=== PATIENT | female | born 2005 | race Caucasian/White ===

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

== ENCOUNTER → 2024-01-08 07:17 | Outpatient (REF) | payer BC, SELFPAY | LOC: HWRAD 07:17 | PROVIDERS: ATTENDING PHYSICIAN Nurse Practitioner | DX: R10.9 Unspecified abdominal pain (principal) | CPT/HCPCS: 76700 ==

== ENCOUNTER 2024-04-10 01:05 | Emergency (ER) | payer BC, SELFPAY ==
[2024-04-10 01:06] VITALS: BP 160/100
--- NOTE | 2024-04-10 01:11 | ED.GENMED ---
History of Present Illness
<HEATHER Driscoll - Last Filed: 04/10/24 03:25>
General
Chief Complaint: Chest Pain
Source: patient
Time Seen by Provider: 04/10/24 01:11
Nursing documentation reviewed up to this point in time: agreed with
History of Present Illness
History of Present Illness:
Pt is a 19 yo F who presents with a history of anxiety and depression to the emergency department with worsening chest pain for the past few hours. Pt states that she noticed the chest pain and felt 'off' while in class today and explains that her
chest pain continued to worsen so she decided to seek care. Pt states the chest pain is located in the middle of her chest and that it is non-radiating. She describes the pain as sharp and rates it a 7/10. Pt states that nothing makes the chest pain
better or worse. Pt states that she has been experiencing dizziness, tachycardia, and fainting when going from a sitting to standing position for the past 3 weeks. Pt states that she saw her PCP for these symptoms a couple weeks ago and that her
doctor was planning to begin the pt on a Holter monitor, and that she has not received the monitor at this time. Pt denies these symptoms occurring at this time. Pt denies shortness of breath, cough, hemoptysis, fever, syncope, lower extremity pain
or edema, chills, nausea, vomiting, palpitations, recent illness.
Past History
<HEATHER Driscoll - Last Filed: 04/10/24 03:25>
Past History
ED Past Medical History: Psychiatric and Other (Chronic neck pain)
Social History
Tobacco: Non-smoker
Alcohol: None
Drug: None
Personal: Single
Living: with family
Employment: Employed
Review of Systems
<HEATHER Driscoll - Last Filed: 04/10/24 03:25>
Review of Systems
Allergies reviewed?: Yes
Constitutional: Reports no symptoms
EENT: Reports no symptoms
Respiratory: Reports no symptoms
Cardiac: Reports chest pain
ABD/GI: Reports no symptoms
: Reports no symptoms
Skin: Reports no symptoms
Neurological: Reports no symptoms
Phy Exam
<Radha Jackman [facility] - Last Filed: 04/10/24 03:25>
General Physical Exam
General Presentation: well appearing and no apparent distress
General Skin: warm
General Habitus: normal
General Mental: alert
General Hydration: appears well hydrated
Cardiovascular Exam
Cardiovascular Exam: regular rate/rhythm
Pulmonary Exam
Pulmonary Exam: lungs clear
Scores
<Radha Jackman, [facility] - Last Filed: 04/10/24 03:25>
Heart Score for Chest Pain Patients
STEMI patient?: No
History: Slightly or Non-Suspicious
ECG: Normal
Age: </= 45 years
Risk Factors: No Risk Factors
Troponin: </= Normal Limit
Heart Score for Chest Pain Patients: 0
Heart Score Risk: 2.5% MACE over next 6 weeks
Course
<Radha Jackman, [facility] - Last Filed: 04/10/24 03:25>
Orders/Labs/Results
Orders:
Orders
04/10/24 01:10
ECG [Electrocardiogram (*1)] Urgent
Reason for Study: Chest Pain
EKG- Treatment ONCE
04/10/24 01:23
Test Result ONCE
04/10/24 01:25
Complete Blood Count/With Diff Urgent
Comprehensive Metabolic Panel Urgent
HCG, Serum Qualitative Screen Urgent
Troponin I Urgent
04/10/24 02:25
CXR2 [CR Chest - 2 Views ] Urgent
Comment:
Reason For Exam: chest pain
Abnormal Lab Results
04/10/24
01:25
WBC 11.4 H 10^3/uL
(4.8-10.8)
MPV 10.7 H fL
(7.4-10.4)
Absolute Neuts (auto) 7.0 H 10^3/uL
(1.4-6.5)
Absolute Monos (auto) 0.8 H 10^3/uL
(0.1-0.6)
04/10/24 01:25
04/10/24 01:25
Vital Signs
Initial and Last Documented VS:
Initial Vital Signs
Temp Pulse Resp BP Pulse Ox
97.8 F 70 20 160/100 100
04/10/24 01:06 04/10/24 01:06 04/10/24 01:06 04/10/24 01:06 04/10/24 01:06
Last Documented Vital Signs
Temp Pulse Resp BP Pulse Ox
97.8 F 75 18 105/64 97
04/10/24 01:06 04/10/24 02:00 04/10/24 02:00 04/10/24 02:00 04/10/24 02:00
<Arron Kincaid, DO - Last Filed: 04/10/24 03:32>
Orders/Labs/Results
Orders:
Orders
04/10/24 01:10
ECG [Electrocardiogram (*1)] Urgent
Reason for Study: Chest Pain
EKG- Treatment ONCE
04/10/24 01:23
Test Result ONCE
04/10/24 01:25
Complete Blood Count/With Diff Urgent
Comprehensive Metabolic Panel Urgent
HCG, Serum Qualitative Screen Urgent
Troponin I Urgent
04/10/24 02:25
CXR2 [CR Chest - 2 Views ] Urgent
Comment:
Reason For Exam: chest pain
Abnormal Lab Results
04/10/24
01:25
WBC 11.4 H 10^3/uL
(4.8-10.8)
MPV 10.7 H fL
(7.4-10.4)
Absolute Neuts (auto) 7.0 H 10^3/uL
(1.4-6.5)
Absolute Monos (auto) 0.8 H 10^3/uL
(0.1-0.6)
04/10/24 01:25
04/10/24 01:25
Vital Signs
Initial and Last Documented VS:
Initial Vital Signs
Temp Pulse Resp BP Pulse Ox
97.8 F 70 20 160/100 100
04/10/24 01:06 04/10/24 01:06 04/10/24 01:06 04/10/24 01:06 04/10/24 01:06
Last Documented Vital Signs
Temp Pulse Resp BP Pulse Ox
97.8 F 75 18 105/64 97
04/10/24 01:06 04/10/24 02:00 04/10/24 02:00 04/10/24 02:00 04/10/24 02:00
<HEATHER Driscoll - Last Filed: 04/10/24 03:25>
MDM/Problems Addressed
Differential Diagnosis Includes:
Pulmonary embolism, ME, anxiety, GERD
<HEATHER Driscoll - Last Filed: 04/10/24 03:25>
*Critical Care Note
Total Time (30-74mins, 75-104mins- exclusive of procedures): Not Applicable
<Arron Kincaid DO - Last Filed: 04/10/24 03:32>
Update Note
Update Note:
Patient was able to ambulate around the room with no distress.
ED Attending Note
<HEATHER Driscoll - Last Filed: 04/10/24 03:25>
-
Portions of this chart may have been created with voice recognition software.� Occasional wrong word or��sound alike� substitutions may have occurred due to the inherent limitations of voice recognition software.
<Arron Kincaid DO - Last Filed: 04/10/24 03:32>
ED Attending Note
Patient seen and examined by attending physician: Yes
I performed the substantive portion of visit, reviewed & personally made and approve the management plan that is documented in note by myself or AMANDO.: Yes
ED Attending Note:
Pleasant 19-year-old female presents to the Emergency Department with several weeks of palpitations. She has been seen by her family doctor and due to start a Holter monitor. Tonight for approximately 3 hours prior to arrival she states that she
had chest pain. She states that the chest pain is not reproducible. It does not radiate. She states that it is sharp in nature. Denies any breathing issue. Denies fever, chills, nausea vomiting. Patient denies any calf tenderness or shortness
of breath. Patient was seen in conjunction with the PA student. I have reviewed and agree with the history and treatment plan presented. On my independent physical exam, patient is awake, alert, and oriented x3 no acute distress. Heart is
regular rate and rhythm. Lungs are clear to auscultation. Abdomen is soft nontender. Skin is warm and dry. Patient moves all 4 extremities. Mentating appropriately.
Discharge Plan
Departure
Patient Disposition: Home (Routine Discharge)
Date of Disposition: 04/10/24
Time of Disposition: 03:09
Patient with high blood pressure during this ER visit?: No
Discharge Problem:
Chest pain
Instructions: Chest Pain PCP Follow Up
Prescriptions:
No Action
dextromethorphan-guaifenesin 180 ML liquid
1 tsp PO PRN PRN (Reason: cough)
amoxicillin-pot clavulanate 1 TABLET tablet
1 tab PO Q12 Qty: 14 0RF
ibuprofen 600 mg tablet
600 mg PO Q6H PRN (Reason: Pain) Qty: 30 0RF
Referrals:
[facility] [Provider Group] - As needed
Anna Casarez CRNP [Family Provider] -
Activity Restrictions/Additional Instructions:
It was a pleasure meeting you and taking part in your care. We hope for your continued healing and wellness.
Please read discharge instructions in their entirety. However, they are for general education and may not describe your exact diagnosis at discharge. Information on your ER visit and medical conditions were discussed with you along with appropriate
follow up information...
If indicated, please take your medications as instructed and indicated on discharge paperwork.
Please schedule a follow up appointment as directed. Call to schedule an appointment
Please return to the emergency department with ANY change in, persisting, or worsening of symptoms. If any of your symptoms do not improve, or persist, or become more severe within 6-12 hours, please return to the emergency department for further
care.
Please return to the emergency department if you develop a headache, neck pain/stiffness, fever greater than 100.4F, chest pain, shortness of breath, persistent nausea, vomiting, slurred speech, difficulty walking, numbness/tingling, weakness, signs
of infection or any other symptoms that are worrisome to you.
If you have any questions or concerns please do not hesitate to call the Hospital at or E-mail me directly at [email or web address]
Interventions
Interventions:
*Risk Screen - Suicide Last Done: 04/10/24 01:06
*General Assessment Last Done: 04/10/24 01:20
*Neglect/Abuse Screening Last Done: 04/10/24 01:06
ED- Fall Risk Assessment Last Done: 04/10/24 01:23
*ED COVID-19 Vaccine History Last Done: 04/10/24 01:21
ED- Cardiac Assessment Last Done: 04/10/24 01:20
Discharge Date and Time
Print Language: DANISH
[2024-04-10 01:22] VITALS: BP 110/78
[2024-04-10 01:47] LABS: HCG, Serum Qualitative Screen Negative
[2024-04-10 01:51] LABS: % Basophils 0.6 % (0-2); % Eosinophils 1.8 % (0-6); % Immature Granulocytes 0.3 % (0-0.5); % Lymphocytes 29.5 % (20.5-51.1); % Neutrophils 60.8 % (42.2-75.2); Absolute Basophils 0.1 10^3/uL (0-0.2); Absolute Eosinophils 0.2 10^3/uL (0-0.7); Absolute Lymphocytes 3.4 10^3/uL (1.2-3.4); Absolute Monocytes 0.8 10^3/uL (0.1-0.6); Hematocrit 41.3 % (37.0-47.0); Hemoglobin 14.1 g/dL (12.0-16.0); Mean Corp Hgb Conc. 34.1 g/dL (33.0-37.0); Mean Corpuscular Hgb 29.4 pg (27.0-31.0); Mean Platelet Volume 10.7 fL (7.4-10.4); Nucleated Red Blood Cells % 0 %; Platelet Count 263 10^3/uL (130-400); Red Cell Dist. Width 11.7 % (11.5-14.5); White Blood Cell Count 11.4 10^3/uL (4.8-10.8)
[2024-04-10 01:52] LABS: ALT (SGPT) 19 U/L (0-35); AST (SGOT) 19 U/L (14-36); Albumin 4.5 g/dl (3.5-5.0); Alkaline Phosphatase 72 U/L (38-126); Blood Urea Nitrogen 17 mg/dl (7-17); Calcium 9.6 mg/dl (8.4-10.2); Carbon Dioxide 24 mmol/L (22-30); Chloride 103 mmol/L (98-107); Glucose 91 mg/dl (70-99); Potassium 4.3 mmol/L (3.5-5.1); Sodium 140 mmol/L (135-145); Total Bilirubin 0.3 mg/dl (0.2-1.3); eGFR > 60.00
[2024-04-10 02:00] VITALS: BP 105/64
[2024-04-10 02:03] LABS: Troponin I < 0.012 ng/ml
[2024-04-10 02:56] VITALS: BP 94/59
[2024-04-10 03:20] VITALS: BP 93/66
== END 2024-04-10 03:25 | disposition home or self-care (01) ==
LOC: EMR 01:05
PROVIDERS: EMERGENCY PHYSICIAN Student in an Organized Health Care Education/Training Program; FAMILY PHYSICIAN Nurse Practitioner
DX: R07.89 Other chest pain (principal); F41.9 Anxiety disorder, unspecified
CPT/HCPCS: 99283; 71046; 80053; 84484; 84703; 85025; 93005

== ENCOUNTER → 2024-04-12 09:16 | Outpatient (REF) | payer BC, SELFPAY ==
[2024-04-12 11:51] LABS: % Basophils 0.4 % (0-2); % Eosinophils 2.1 % (0-6); % Immature Granulocytes 0.2 % (0-0.5); % Lymphocytes 37.7 % (20.5-51.1); % Monocytes 7.7 % (1.7-9.3); % Neutrophils 51.9 % (42.2-75.2); Absolute Eosinophils 0.2 10^3/uL (0-0.7); Absolute Lymphocytes 3.7 10^3/uL (1.2-3.4); Absolute Monocytes 0.8 10^3/uL (0.1-0.6); Absolute Neutrophils 5.1 10^3/uL (1.4-6.5); Hematocrit 40.4 % (37.0-47.0); Mean Corp Hgb Conc. 34.7 g/dL (33.0-37.0); Mean Corpuscular Hgb 30.2 pg (27.0-31.0); Mean Corpuscular Volume 87.1 fL (81.0-99.0); Mean Platelet Volume 11.4 fL (7.4-10.4); Nucleated Red Blood Cells % 0 %; Platelet Count 243 10^3/uL (130-400); Red Blood Cell Count 4.64 10^6/uL (4.20-5.40); Red Cell Dist. Width 11.8 % (11.5-14.5); White Blood Cell Count 9.9 10^3/uL (4.8-10.8)
[2024-04-12 12:57] LABS: ALT (SGPT) 24 U/L (0-35); AST (SGOT) 22 U/L (14-36); Albumin 4.5 g/dl (3.5-5.0); Alkaline Phosphatase 73 U/L (38-126); Blood Urea Nitrogen 16 mg/dl (7-17); Calcium 9.5 mg/dl (8.4-10.2); Carbon Dioxide 24 mmol/L (22-30); Chloride 103 mmol/L (98-107); Glucose 81 mg/dl (70-99); Potassium 3.9 mmol/L (3.5-5.1); Sodium 141 mmol/L (135-145); Total Bilirubin 0.4 mg/dl (0.2-1.3); Total Protein 7.1 g/dl (6.3-8.2); eGFR > 60.00
== END ==
LOC: RCS 09:16
PROVIDERS: ATTENDING PHYSICIAN Hospitalist
DX: R55 Syncope and collapse (principal)
CPT/HCPCS: 36415; 80053; 84443; 85025; 93225; 93226

== ENCOUNTER 2025-04-07 19:04 | Emergency (ER) | payer BC, SELFPAY ==
[2025-04-07 19:26] VITALS: BP 140/96
--- NOTE | 2025-04-07 21:04 | ED.GENMED ---
History of Present Illness
<Bree Patton MD, Resident - Last Filed: 04/08/25 23:09>
General
Chief Complaint: Musculo-Skeletal Complaint
Source: patient and family
Time Seen by Provider: 04/07/25 20:44
History of Present Illness
History of Present Illness:
20yo F with no significant pmh who presents following inversion ankle injury.
Pt twisted ankle (inversion) tripping over curb on yesterday. Noted significant swelling of the ankle ('football size') and some erythema. Presented to urgent care, obtained XR of L ankle. XR demonstrated fracture of L 5th toe (from older, prior
injury) but no other bony injury. Dx with ankle sprain and given a splint and crutches. Told to avoid bearing weight on L foot for a week. Pt works in retail, requires standing all day. Pt requires note excusing her from work for remainder of this
week.
Denies any fever/chills. Denies any worsening of swelling or erythema - both have improved. Lateral ankle is tender. Has not been bearing weight. Tylenol has controlled pain thus far.
Past History
<Bree Patton MD, Resident - Last Filed: 04/08/25 23:09>
Past History
ED Past Medical History: Psychiatric and Other (Chronic neck pain)
Social History
Tobacco: Non-smoker
Alcohol: None
Drug: None
Personal: Single
Living: with family
Employment: Employed
Review of Systems
<Bree Patton MD, Resident - Last Filed: 04/08/25 23:09>
Review of Systems
All Other Systems: ROS reviewed and negative except as documented in HPI and ROS
Phy Exam
<Bree Patton MD, Resident - Last Filed: 04/08/25 23:09>
Physical Exam
Physical Exam:
General: well-appearing, no apparent distress
MSK: R ankle in splint, without significant swelling compared to L ankle; R ankle with tenderness to palpation over lateral malleolus; ROM limited by pain
Musculoskeletal Exam
Musculoskeletal Exam: other (mild edema of L ankle, no erythema or warmth; L ankle tender to palpation over lateral malleolus, less ttp on foot dorsum or medial malleolus; no ttp over L fernandez; able to flex/extend L ankle but limited by significant
pain)
Course
<Bree Patton MD, Resident - Last Filed: 04/08/25 23:09>
Vital Signs
Initial and Last Documented VS:
Initial Vital Signs
Temp Pulse Resp BP Pulse Ox
98 F 104 18 140/96 98
04/07/25 19:26 04/07/25 19:26 04/07/25 19:26 04/07/25 19:26 04/07/25 19:26
Last Documented Vital Signs
Temp Pulse Resp BP Pulse Ox
98 F 104 18 140/96 98
04/07/25 19:26 04/07/25 19:26 04/07/25 19:26 04/07/25 19:26 04/07/25 21:09
<Dillon Swanson, DO - Last Filed: 04/07/25 21:14>
Vital Signs
Initial and Last Documented VS:
Initial Vital Signs
Temp Pulse Resp BP Pulse Ox
98 F 104 18 140/96 98
04/07/25 19:26 04/07/25 19:26 04/07/25 19:26 04/07/25 19:26 04/07/25 19:26
Last Documented Vital Signs
Temp Pulse Resp BP Pulse Ox
98 F 104 18 140/96 98
04/07/25 19:26 04/07/25 19:26 04/07/25 19:26 04/07/25 19:26 04/07/25 21:09
<Bree Patton MD, Resident - Last Filed: 04/08/25 23:09>
MDM/Problems Addressed
Differential Diagnosis Includes:
L ankle sprain 2/2 inversion injury
MDM/Problems Addressed:
- Work note for non-weight bearing for 1 week
- Continue tylenol PRN
- Continue splint and crutches to avoid weight bearing
<Bree Patton MD, Resident - Last Filed: 04/08/25 23:09>
*Pulse Oximetry
SaO2: 98
Oxygen Mode of Delivery: Room air
Patient hypoxic: no
*Critical Care Note
Total Time (30-74mins, 75-104mins- exclusive of procedures): Not Applicable
ED Attending Note
<Bree Patton MD, Resident - Last Filed: 04/08/25 23:09>
-
Portions of this chart may have been created with voice recognition software.� Occasional wrong word or��sound alike� substitutions may have occurred due to the inherent limitations of voice recognition software.
<Dillon Swanson, DO - Last Filed: 04/07/25 21:14>
ED Attending Note
Patient seen and examined by attending physician: Yes
I performed a history and physical exam of patient and discussed management with resident, I reviewed resident's note and agree with documented findings and plan of care.: Yes
ED Attending Note:
Seen with resident examined independently inversion ankle injury splinted immobilized, requesting a work note
Discharge Plan
Departure
Patient Disposition: Home (Routine Discharge)
Date of Disposition: 04/07/25
Time of Disposition: 21:12
Patient with high blood pressure during this ER visit?: No
Condition: Good
Covid-19: Not Applicable
Discharge Problem:
Inversion sprain of left ankle
Instructions: Ankle sprain, How to Use Crutches, Ankle sprain - ED (DC)
Prescriptions:
No Action
dextromethorphan-guaifenesin 180 ML liquid
1 tsp PO PRN PRN (Reason: cough)
amoxicillin-pot clavulanate 1 TABLET tablet
1 tab PO Q12 Qty: 14 0RF
ibuprofen 600 mg tablet
600 mg PO Q6H PRN (Reason: Pain) Qty: 30 0RF
Referrals:
Dillon Enciso MD [Active, Orthopedics] - Follow up in 1 week
Referral Note: L ankle sprain, inversion injury
NONE,* [Active, Internal Medicine]
Stand Alone Forms: Return to Work
Interventions
Interventions:
*Risk Screen - Suicide Last Done: 04/07/25 19:26
*General Assessment Last Done: 04/07/25 22:01
*Neglect/Abuse Screening Last Done: 04/07/25 19:26
*ED- Fall Risk Assessment Last Done: 04/07/25 22:01
*ED COVID-19 Vaccine History Last Done: 04/07/25 22:01
*ED Influenza Vaccine History Last Done: 04/07/25 22:01
*Nursing Disposition Last Done: 04/07/25 22:03
ED-Musculoskeletal Assessment Last Done: 04/07/25 22:01
Discharge Date and Time
Discharge Date/Time: 04/07/25 22:03
Print Language: JAPANESE
== END 2025-04-07 22:03 | disposition home or self-care (01) ==
LOC: EMR 19:04
PROVIDERS: EMERGENCY PHYSICIAN Emergency Medicine; FAMILY PHYSICIAN Internal Medicine
DX: S93.402A Sprain of unspecified ligament of left ankle, initial encounter (principal); X50.1XXA Overexertion from prolonged static or awkward postures, initial encounter
CPT/HCPCS: 99282; 29515